=== PATIENT | female | born 1935 | race Caucasian/White ===

== ENCOUNTER → 2018-10-28 | Outpatient (CLI) | payer MEDICARE ==
[2018-10-28 09:34] LABS: Basophils # (A) 0.1 k/uL (0-0.2); Basophils % (A) 1 %; Eosinophils # (A) 0.2 k/uL (0-0.7); Eosinophils % (A) 3 %; HCT 42.2 % (34.0-46.0); HGB 14.2 gm/dL (11.4-16.0); Lymphocytes # (A) 1.8 k/uL (1.0-4.8); Lymphocytes % (A) 28 %; MCH 30.9 pg (25.0-35.0); MCHC 33.6 g/dL (31.0-37.0); MCV 92.2 fL (80.0-100.0); Mean Platelet Volume 7.2; Monocytes # (A) 0.4 k/uL (0-1.0); Monocytes % (A) 7 %; Neutrophils # (A) 3.6 k/uL (1.3-7.7); Neutrophils % (A) 58 %; Platelet Count 349 k/uL (150-450); RBC 4.58 m/uL (3.80-5.40); RDW 13.7 % (11.5-15.5); WBC 6.3 k/uL (3.8-10.6)
[2018-10-28 16:34] LABS: Albumin 4.3 g/dL (3.80-4.90); Albumin/Globulin Ratio 2.26 (1.60-3.17); Calcium 9.5 mg/dL (8.7-10.3); Globulin 1.9 g/dL (1.6-3.3); LDL Cholesterol,Calculated 125.6 mg/dL (0.0-131.0); Magnesium 2.3 mg/dL (1.5-2.4); Total Bilirubin 0.3 mg/dL (0.3-1.2); Total Protein 6.2 g/dL (6.2-8.2); Uric Acid 4.9 mg/dL (2.9-7.7); VLDL Calculation 55.4 mg/dL (5.00-40.00)
[2018-10-28 16:42] LABS: T4, Free (Free Thyroxine) 1.2 ng/dL (0.80-1.80)
== END ==
LOC: LABWHC1 08:45
PROVIDERS: ATTEND Family Medicine
DX: N18.3 Chronic kidney disease, stage 3 (moderate) (principal); E03.9 Hypothyroidism, unspecified; E78.5 Hyperlipidemia, unspecified; E55.9 Vitamin D deficiency, unspecified
CPT/HCPCS: 36415; 80053; 80061; 82043; 82306; 82570; 83735; 84100; 84439; 84443; 84550; 85025

== ENCOUNTER 2018-12-11 14:37 | Emergency (ER) | payer MEDICARE ==
[2018-12-11 14:44] VITALS: TEMP 98.1
[2018-12-11] MEDS ORDERED: DIAZEPAM 5 MG TAB PO STA (15:14)
[2018-12-11] MEDS ORDERED: Acetaminophen-Codeine 300-30mg TAB PO STA (15:14)
[2018-12-11] MEDS ORDERED: MAG HYDROX/AL HYDROX/SIMETH 30 ML, HYOSCYAMINE ELIXIR 10 ML, CIMETIDINE HCL 300 MG, LID... PO STA ×4 (15:15)
--- NOTE | 2018-12-11 15:18 | ED ---
General Adult HPI - General Chief complaint: Weakness Stated complaint: Weakness, confused sent by Time Seen by Provider: 12/11/18 14:46 Source: patient Mode of arrival: wheelchair Limitations: no limitations - History of Present Illness Initial comments: Dictation was produced using [employer] dictation software. please excuse any gram matical, word or spelling errors. 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 History of Present Illness: Is 82-year-old female she has history of vertebral artery stenosis versus occlusion. She states that over the last 2-3 days she's been having worsening pain, GI upset. Patient takes aspirin for her vascular disease. Patient has been feeling GI upset for the last 2-3 days. Patient recently switched primary care physicians. She sees Dr. Venegas now. For the last couple months she has been without her Tylenol No. 3's and Valium pills. Patient states since being off these medications she's been experiencing worsening neck pain symptoms. Patient feels tightness to the occipital area and her pain is exacerbated with movement. She feels as though her muscles are spasming. Patient reports that she was recently diagnosed with constipation and had multiple enemas with relief of constipation. Patient has history of cholecystectomy. She was diagnosed with bile duct stones after cholecystectomy. She reported ERCP at that time. Eyes any worsening symptoms with by mouth intake. Denies any neuro complaints. The ROS documented in this emergency department record has been reviewed and confirmed by me. Those systems with pertinent positive or negative responses have been documented in the HPI. All other systems are other negative and/or noncontributory. PHYSICAL EXAM: General Impression: Alert and oriented x3, not in acute distress HEENT: Normocephalic atraumatic, extra-ocular movements intact, pupils equal and reactive to light bilaterally, mucous membranes moist, spasm felt to the paracervical soft tissues Cardiovascular: Heart regular rate and rhythm, S1&S2 audible, no murmurs, rubs or gallops Chest: Lungs clear to auscultation bilaterally, no rhonchi, no wheeze, no rales Abdomen: Bowel sounds present, abdomen soft, non-tender, non-distended, no organomegaly Musculoskeletal: Pulses present and equal in all extremities, no peripheral edema Motor: no focal deficits noted Neurological: CN II-XII grossly intact, no focal motor or sensory deficits noted, non-gait ataxia Skin: Intact with no visualized rashes Psych: Normal affect and mood ED course: 82 yo female presents with epigastric abdominal pain and neck stiffness. As upon arrival are within acceptable limits. Return evaluation obtained. CBC, metabolic panel is obtained. Urinalysis negative. KUB x-ray was obtained and is found to be unremarkable. Patient treated with GI cocktail, Tylenol 3 and Valium. Patient observed in emergency department for several hours. She is reevaluated improvement of symptoms. Patient given a small amount of Tylenol 3 and Valium to be discharged with. She is told to follow-up with her PCP for refill. She is clinical presentation consistent with GI upset likely gastritis and acute cervical spasm. Return for hours discussed. Patient clear for discharge. EKG interpretation: Ventricular rate 76, normal sinus rhythm,. Interval 136, QS 84, QTC 4:30. No IA prolongation, no QTC prolongation, no ST or T-wave changes noted. No old EKG for comparison Overall, this EKG is unremarkable - Related Data Home Medications Medication Instructions Recorded Confirmed Amitriptyline HCl [Elavil] 25 mg PO HS 12/11/18 12/11/18 Aspirin [[place] Aspirin EC] 81 mg PO DAILY 12/11/18 12/11/18 Calcium Carbonate/Vitamin D3 1 tab PO DAILY 12/11/18 12/11/18 [Calcium 500-Vit D3 600 Tablet] Cholecalciferol (Vitamin D3) 2,000 unit PO DAILY 12/11/18 12/11/18 [Vitamin D3] Donepezil HCl [Aricept] 5 mg PO DAILY 12/11/18 12/11/18 Magnesium Citrate 125 mg PO DAILY 12/11/18 12/11/18 Magnesium Oxide 400 mg PO DAILY 12/11/18 12/11/18 Metoprolol Succinate (ER) [Toprol 100 mg PO DAILY 12/11/18 12/11/18 XL] Multivitamins, Thera [Multivitamin 1 tab PO DAILY 12/11/18 12/11/18 (formulary)] Niacin (Inositol Niacinate) [No 400 mg PO DAILY 12/11/18 12/11/18 Flush Niacin 400 mg Cap] Polyethylene Glycol 3350 [Miralax] 17 gm PO DAILY 12/11/18 12/11/18 Prochlorperazine [Compazine] 5 mg PO Q8HR PRN 12/11/18 12/11/18 Triamterene-Hctz 37.5-25Mg 1 cap PO DAILY 12/11/18 12/11/18 [Dyazide 37.5-25 Capsule] Vanquish 1 tab PO BID 12/11/18 12/11/18 Previous Rx's Medication Instructions Recorded Acetaminophen-Codeine 300-30mg 1 tab PO Q6H PRN 3 Days #12 tablet 12/11/18 [Tylenol w/codeine #3] Diazepam [Valium] 2 mg PO TID PRN 3 Days #9 tab 12/11/18 Pantoprazole [Protonix] 40 mg PO DAILY #24 tablet. 12/11/18 Allergies Allergy/AdvReac Type Severity Reaction Status Date / Time No Known Allergies Allergy Unverified 12/11/18 15:11 Review of Systems ROS Statement: Those systems with pertinent positive or pertinent negative responses have been documented in the HPI. ROS Other: All systems not noted in ROS Statement are negative. Past Medical History Past Medical History: Hypertension Additional Past Medical History / Comment(s): neuropathy History of Any Multi-Drug Resistant Organisms: None Reported Past Psychological History: No Psychological Hx Reported Smoking Status: Never smoker Past Alcohol Use History: None Reported Past Drug Use History: None Reported General Exam Limitations: no limitations Course Vital Signs 12/11/18 12/11/18 12/11/18 14:39 16:00 16:40 Temperature 98.1 F Pulse Rate 79 71 76 Respiratory 18 15 15 Rate Blood Pressure 158/76 159/71 152/76 O2 Sat by Pulse 99 98 98 Oximetry Medical Decision Making - Lab Data Result diagrams: 12/11/18 15:34 12/11/18 15:34 Lab Results 12/11/18 12/11/18 12/11/18 Range/Units 15:34 15:34 15:34 WBC 8.0 (3.8-10.6) k/uL RBC 4.60 (3.80-5.40) m/uL Hgb 14.2 (11.4-16.0) gm/dL Hct 42.1 (34.0-46.0) % MCV 91.5 (80.0-100.0) fL MCH 31.0 (25.0-35.0) pg MCHC 33.8 (31.0-37.0) g/dL RDW 14.2 (11.5-15.5) % Plt Count 308 (150-450) k/uL Neutrophils % 65 % Lymphocytes % 23 % Monocytes % 7 % Eosinophils % 1 % Basophils % 1 % Neutrophils # 5.2 (1.3-7.7) k/uL Lymphocytes # 1.9 (1.0-4.8) k/uL Monocytes # 0.6 (0-1.0) k/uL Eosinophils # 0.1 (0-0.7) k/uL Basophils # 0.1 (0-0.2) k/uL Sodium 140 (137-145) mmol/L Potassium 4.0 (3.5-5.1) mmol/L Chloride 100 (98-107) mmol/L Carbon Dioxide 30 (22-30) mmol/L Anion Gap 10 mmol/L BUN 16 (7-17) mg/dL Creatinine 0.98 (0.52-1.04) mg/dL Est GFR (CKD-EPI)AfAm 63 (>60 ml/min/1.73 sqM) Est GFR (CKD-EPI)NonAf 55 (>60 ml/min/1.73 sqM) Glucose 96 (74-99) mg/dL Calcium 10.1 (8.4-10.2) mg/dL Total Bilirubin 0.7 (0.2-1.3) mg/dL Conjugated Bilirubin 0.0 (0.0-0.3) mg/dL Unconjugated Bilirubin 0.5 (0.0-1.1) mg/dL Delta Bilirubin 0.2 (0.0-0.2) mg/dL AST 37 H (14-36) U/L ALT 19 (9-52) U/L Alkaline Phosphatase 92 (38-126) U/L Total Protein 7.8 (6.3-8.2) g/dL Albumin 4.8 (3.5-5.0) g/dL Lipase 52 (23-300) U/L Urine Color Colorless Urine Appearance Clear (Clear) Urine pH 7.5 (5.0-8.0) Ur Specific [place] 1.005 (1.001-1.035) Urine Protein Negative (Negative) Urine Glucose (UA) Negative (Negative) Urine Ketones Negative (Negative) Urine Blood Negative (Negative) Urine Nitrite Negative (Negative) Urine Bilirubin Negative (Negative) Urine Urobilinogen <2.0 (<2.0) mg/dL Ur Leukocyte Esterase Negative (Negative) Disposition Clinical Impression: Cervical strain, Epigastric pain Disposition: HOME SELF-CARE Condition: Good Instructions (If sedation given, give patient instructions): Abdominal Pain (ED), Cervical Strain (ED) Prescriptions: Pantoprazole [Protonix] 40 mg PO DAILY #24 tablet.dr Acetaminophen-Codeine 300-30mg [Tylenol w/codeine #3] 1 tab PO Q6H PRN 3 Days #12 tablet PRN Reason: Pain Diazepam [Valium] 2 mg PO TID PRN 3 Days #9 tab PRN Reason: neck spasm Is patient prescribed a controlled substance at d/c from ED?: Yes If prescribed controlled substance>3 days was MAPS reviewed?: Prescribed <3 Days Referrals: Rosetta Venegas MD [Primary Care Provider] - 1-2 days Time of Disposition: 17:11
[2018-12-11 15:45] LABS: Basophils # (A) 0.1 k/uL (0-0.2); Basophils % (A) 1 %; Eosinophils # (A) 0.1 k/uL (0-0.7); Eosinophils % (A) 1 %; HCT 42.1 % (34.0-46.0); HGB 14.2 gm/dL (11.4-16.0); Lymphocytes # (A) 1.9 k/uL (1.0-4.8); Lymphocytes % (A) 23 %; MCHC 33.8 g/dL (31.0-37.0); MCV 91.5 fL (80.0-100.0); Mean Platelet Volume 7.4; Monocytes # (A) 0.6 k/uL (0-1.0); Monocytes % (A) 7 %; Neutrophils # (A) 5.2 k/uL (1.3-7.7); Neutrophils % (A) 65 %; Platelet Count 308 k/uL (150-450); RDW 14.2 % (11.5-15.5)
[2018-12-11 15:47] LABS: Appearance,Urine Clear (Clear); Bilirubin,Urine Negative (Negative); Blood,Urine Negative (Negative); Color,Urine Colorless; Glucose,Urine (UA) Negative (Negative); Ketones,Urine Negative (Negative); Leukocyte Esterase,Urine Negative (Negative); Nitrite,Urine Negative (Negative); PH, Urine 7.5 (5.0-8.0); Protein,Urine Negative (Negative); Specific Gravity,Urine 1.005 (1.001-1.035); Urobilinogen,Urine <2.0 mg/dL (<2.0)
--- NOTE | 2018-12-11 15:47 | XR ---
EXAMINATION TYPE: XR KUB DATE OF EXAM: 12/11/2018 COMPARISON: NONE HISTORY: Mid abdominal pain and constipation TECHNIQUE: Single upright view of the abdomen was obtained FINDINGS: Lung bases are well aerated. Cholecystectomy clips are seen. Scattered air is seen within n ondilated large and small bowel. No pneumoperitoneum is seen. There is a very mild levoscoliosis of t he upper lumbar spine. No acute osseous pathology is seen. No suspicious calcification in the abdomen or pelvis. IMPRESSION: Nonobstructive bowel gas pattern.
[2018-12-11 15:53] LABS: Albumin 4.8 g/dL (3.5-5.0); Bilirubin, Delta 0.2 mg/dL (0.0-0.2); Bilirubin,Unconjugated 0.5 mg/dL (0.0-1.1); Calcium 10.1 mg/dL (8.4-10.2); Total Bilirubin 0.7 mg/dL (0.2-1.3); Total Protein 7.8 g/dL (6.3-8.2)
[2018-12-11 16:47] VITALS: BP 152/76; PULSE 76; RESP 15
== END 2018-12-11 17:24 | disposition home or self-care (01) ==
LOC: EC 14:37
DX: S16.1XXA Strain of muscle, fascia and tendon at neck level, initial encounter (principal); R10.13 Epigastric pain; I10 Essential (primary) hypertension; K59.00 Constipation, unspecified; Z79.82 Long term (current) use of aspirin; Z79.899 Other long term (current) drug therapy; Z90.49 Acquired absence of other specified parts of digestive tract
CPT/HCPCS: 36415; 74018; 80053; 81003; 82248; 83690; 85025; 87086; 93005; 99285

== ENCOUNTER → 2019-06-15 | Outpatient (CLI) | payer MEDICARE ==
[2019-06-15 11:19] LABS: Basophils # (A) 0.1 k/uL (0-0.2); Basophils % (A) 1 %; Eosinophils # (A) 0.2 k/uL (0-0.7); Eosinophils % (A) 3 %; HGB 13.1 gm/dL (11.4-16.0); Lymphocytes # (A) 1.5 k/uL (1.0-4.8); Lymphocytes % (A) 24 %; MCH 32.3 pg (25.0-35.0); MCHC 34.4 g/dL (31.0-37.0); MCV 93.8 fL (80.0-100.0); Mean Platelet Volume 7.8; Monocytes # (A) 0.5 k/uL (0-1.0); Monocytes % (A) 7 %; Neutrophils # (A) 3.8 k/uL (1.3-7.7); Neutrophils % (A) 61 %; Platelet Count 258 k/uL (150-450); RBC 4.05 m/uL (3.80-5.40); RDW 12.3 % (11.5-15.5); WBC 6.1 k/uL (3.8-10.6)
[2019-06-15 17:53] LABS: African American GFR (CKD) 49.1 (60.0-200.0); Albumin 4.2 g/dL (3.80-4.90); Albumin/Globulin Ratio 2.21 (1.60-3.17); Anion Gap 6.1 mmol/L (4.00-12.00); Calcium 9.6 mg/dL (8.7-10.3); Carbon Dioxide 31.9 mmol/L (21.6-31.8); Chol/HDL Ratio 3.19; Globulin 1.9 g/dL (1.6-3.3); LDL Cholesterol,Calculated 112.4 mg/dL (0.0-131.0); Non-African American GFR(CKD) 42.3 (60.0-200.0); Potassium 4.1 mmol/L (3.5-5.5); Total Bilirubin 0.4 mg/dL (0.2-1.2); Total Protein 6.1 g/dL (6.2-8.2); VLDL Calculation 23.6 mg/dL (5.00-40.00)
== END | disposition home or self-care (01) ==
LOC: LABWHC1 09:24
PROVIDERS: ATTEND Family Medicine
DX: I12.9 Hypertensive chronic kidney disease with stage 1 through stage 4 chronic kidney disease, or unspecified chronic kidney disease (principal); N18.3 Chronic kidney disease, stage 3 (moderate); E78.5 Hyperlipidemia, unspecified
CPT/HCPCS: 36415; 80053; 80061; 85025

== ENCOUNTER → 2019-09-09 | Outpatient (CLI) | payer MEDICARE ==
--- NOTE | 2019-09-09 12:07 | XR ---
EXAMINATION TYPE: XR thoracic spine 2V DATE OF EXAM: 09/09/2019 CLINICAL HISTORY: Mid back pain TECHNIQUE: Frontal, lateral, and swimmer's view of thoracic spine are obtained. COMPARISON: None. FINDINGS: Thoracic spine show satisfactory alignment without evidence of acute fracture or dislocatio n. Minimal degenerative change of the thoracic spine. Vertebral body heights and disc space heights are preserved. Cholecystectomy clips are seen. Visualized ribs are unremarkable. Vascular stent is seen superior to the aortic arch. IMPRESSION: No acute fracture or dislocation is seen in the thoracic spine. Mild multilevel degenera tive change of the thoracic spine.
== END | disposition home or self-care (01) ==
LOC: RADXRMAIN 11:33
PROVIDERS: ATTEND Family Medicine
DX: M47.814 Spondylosis without myelopathy or radiculopathy, thoracic region (principal)
CPT/HCPCS: 72070

== ENCOUNTER → 2021-01-19 | Outpatient (CLI) | payer MEDICARE ==
--- NOTE | 2021-01-19 09:32 | XR ---
EXAMINATION TYPE: XR chest 2V DATE OF EXAM: 01/19/2021 COMPARISON: NONE HISTORY: Cough TECHNIQUE: Frontal and lateral views of the chest are obtained. FINDINGS: There is no focal air space opacity, pleural effusion, or pneumothorax seen. The cardiac silhouette size is within normal limits. The osseous structures are intact. Stent material is noted in the upper mediastinum. IMPRESSION: No acute cardiopulmonary process.
== END | disposition home or self-care (01) ==
LOC: RADXRMAIN 08:14
PROVIDERS: ATTEND Otolaryngology
DX: R05 Cough (principal)
CPT/HCPCS: 71046

== ENCOUNTER 2023-02-05 09:44 | Emergency (ER) | payer MEDICARE ==
[2023-02-05 09:59] VITALS: TEMP 97.9
--- NOTE | 2023-02-05 10:39 | ED ---
General Adult HPI - General Chief complaint: Weakness Time Seen by Provider: 02/05/23 10:11 Source: patient, family, RN notes reviewed Mode of arrival: wheelchair Limitations: no limitations - History of Present Illness Initial comments: 87-year-old female with past medical history of hypertension, hypothyroidism presents to the emergency department with chief complaint of weakness and lightheadedness 2-3 days. Patient reports that she has had a lack of appetite for the past 3-4 days and has not been eating much. She reports that she is hydrating well. She states that she is scheduled for a CT abdomen tomorrow with her increasing weakness and low appetite she figured that she should come to the emergency department to be evaluated today. She reports associated nausea without vomiting. Prior abdominal surgeries include cholecystectomy, hysterectomy. - Related Data Home Medications Medication Instructions Recorded Confirmed Amitriptyline HCl [Elavil] 25 mg PO HS 12/11/18 02/05/23 Donepezil HCl [Aricept] 5 mg PO HS 12/11/18 02/05/23 Metoprolol Succinate (ER) [Toprol 100 mg PO DAILY 12/11/18 02/05/23 XL] Multivitamins, Thera [Multivitamin 1 tab PO DAILY 12/11/18 02/05/23 (formulary)] Triamterene-Hctz 37.5-25Mg 1 cap PO DAILY 12/11/18 02/05/23 [Dyazide 37.5-25 Capsule] Levothyroxine Sodium [Synthroid] 25 mcg PO DAILY 02/05/23 02/05/23 Omeprazole [PriLOSEC] 20 mg PO DAILY 02/05/23 02/05/23 Previous Rx's Medication Instructions Recorded Ondansetron Odt [Zofran Odt] 4 mg PO Q8HR PRN #10 tab 02/05/23 Allergies Allergy/AdvReac Type Severity Reaction Status Date / Time No Known Allergies Allergy Verified 02/05/23 14:37 Review of Systems ROS Statement: Those systems with pertinent positive or pertinent negative responses have been documented in the HPI. ROS Other: All systems not noted in ROS Statement are negative. Past Medical History Past Medical History: Cancer, Hypertension Additional Past Medical History / Comment(s): neuropathy History of Any Multi-Drug Resistant Organisms: None Reported Past Surgical History: Cholecystectomy, Heart Catheterization With Stent, Hysterectomy Past Psychological History: No Psychological Hx Reported Smoking Status: Never smoker Past Alcohol Use History: None Reported Past Drug Use History: None Reported General Exam Limitations: no limitations General appearance: alert, in no apparent distress Head exam: Present: atraumatic, normocephalic, normal inspection Eye exam: Present: normal appearance ENT exam: Present: normal exam, mucous membranes moist Neck exam: Present: normal inspection. Absent: tenderness, meningismus, ly mphadenopathy Respiratory exam: Present: normal lung sounds bilaterally. Absent: respiratory distress, wheezes, rales, rhonchi, stridor Cardiovascular Exam: Present: systolic murmur GI/Abdominal exam: Present: soft, tenderness Extremities exam: Present: normal inspection, full ROM, normal capillary refill. Absent: tenderness, pedal edema, joint swelling, calf tenderness Back exam: Present: normal inspection Neurological exam: Present: alert, oriented X3 Psychiatric exam: Present: normal affect, normal mood Skin exam: Present: warm, dry, intact, normal color. Absent: rash Course Vital Signs 02/05/23 02/05/23 09:55 14:49 Temperature 97.9 F Pulse Rate 95 81 Respiratory 16 17 Rate Blood Pressure 188/78 160/81 O2 Sat by Pulse 99 97 Oximetry Medical Decision Making - Medical Decision Making Was pt. sent in by a medical professional or institution ([facility], TEACHER AIDE, urgent care, hospital, or intermediate...) When possible be specific @ -No Did you speak to anyone other than the patient for history (EMS, parent, family, police, friend...)? What history was obtained from this source @ -Patient's and son provided some history of this patient Did you review nursing and triage notes (agree or disagree)? Why? @ -I reviewed and agree with nursing and triage notes Were old charts reviewed (outside hosp., previous admission, EMS record, old EKG, old radiological studies, urgent care reports/EKG's, intermediate records)? Report findings @ -No old charts were reviewed Differential Diagnosis (chest pain, altered mental status, abdominal pain women, abdominal pain men, vaginal bleeding, weakness, fever, dyspnea, syncope, headache, dizziness, GI bleed, back pain, seizure, CVA, palpatations, mental health, musculoskeletal)? @ -Differential Weakness: Hypoglycemia, shock, sepsis, hyponatremia, anemia, infection, CA, ETOH, adverse medicine reaction, overdose, stroke, this is not meant to be an all-inclusive list. EKG interpreted by me (3pts min.). @ -EKG at 1105 shows sinus rhythm rate 70, WA 142, QRS 93 X-rays interpreted by me (1pt min.). @ -CXR shows COPD changes with no evidence for acute process CT interpreted by me (1pt min.). @ -CT abdomen and pelvis no evidence for acute process, trace left pleural effusion U/S interpreted by me (1pt. min.). @ -None done What testing was considered but not performed or refused? (CT, X-rays, U/S, labs)? Why? @ -None What meds were considered but not given or refused? Why? @ -None Did you discuss the management of the patient with other professionals (professionals i.e. , PA, TEACHER AIDE, lab, RT, psych nurse, aids social worker, group sales manager, teacher, retail loss prevention officer, telephonic case manager)? Give summary @ -Case discussed with [facility] who did not believe the patient met criteria for admission or observation Was smoking cessation discussed for >3mins.? @ -No Was critical care preformed (if so, how long)? @ -No Were there social determinants of health that impacted care today? How? (Homelessness, low income, unemployed, alcoholism, drug addiction, transportation, low edu. Level, literacy, decrease access to med. care, intermediate, rehab)? @ -No Was there de-escalation of care discussed even if they declined (Discuss DNR or withdrawal of care, Hospice)? DNR status @ -No What co-morbidities impacted this encounter? (DM, HTN, Smoking, COPD, CAD, Cancer, CVA, ARF, Chemo, Hep., AIDS, mental health diagnosis, sleep apnea, morbid obesity)? @ -None Was patient admitted / discharged? Hospital course, mention meds given and route, prescriptions, significant lab abnormalities, going to OR and other pertinent info. @ -Discharged. Patient presented to the emergency department with chief complaint of generalized weakness worsening over the past 2-3 days. Patient is alert and oriented 4 with no focal neurological deficits. Patient reports decreased appetite with associated nausea.CBC within normal limits, CMP showed mild hyponatremia 132, GFR 61, lactic acid 0.8, negative troponin, BNP 3480; UA showed negative nitrite, negative leukocyte esterase; CT abdomen and pelvis showed trace left-sided pleural effusion, no acute abdominal process. Inpatient admission was considered, this is discussed with his management and [facility] who believes the patient does not meet criteria for inpatient admission. This was discussed with the patient and family and option for admission was discussed with family. Family feels comfortable taking the patient home with strict return precautions and close follow-up with patient's primary care provider. appointment was made for patient's primary care provider on . Strict return precautions discussed. Patient stable at time of discharge. Case discussed with my attending, Dr. Aguilera Undiagnosed new problem with uncertain prognosis? @ -No Drug Therapy requiring intensive monitoring for toxicity (Heparin, Nitro, Insulin, Cardizem)? @ -No Were any procedures done? @ -No Diagnosis/symptom? @ -Generalized weakness Acute, or Chronic, or Acute on Chronic? @ -Acute Uncomplicated (without systemic symptoms) or Complicated (systemic symptoms)? @ -Uncomplicated Side effects of treatment? @ -No Exacerbation, Progression, or Severe Exacerbation? @ -No Poses a threat to life or bodily function? How? (Chest pain, [place], CA, pneumonia, PE, COPD, DKA, ARF, appy, cholecystitis, CVA, Diverticulitis, Homicidal, Suicidal, threat to staff... and all critical care pts) @ -No - Lab Data Result diagrams: 02/05/23 10:40 02/05/23 10:40 Lab Results 02/05/23 02/05/23 02/05/23 Range/Units 10:40 10:40 10:40 WBC 6.2 (3.8-10.6) k/uL RBC 4.27 (3.80-5.40) m/uL Hgb 14.0 (11.4-16.0) gm/dL Hct 39.7 (34.0-46.0) % MCV 92.9 (80.0-100.0) fL MCH 32.8 (25.0-35.0) pg MCHC 35.3 (31.0-37.0) g/dL RDW 12.9 (11.5-15.5) % Plt Count 243 (150-450) k/uL MPV 8.2 Neutrophils % 74 % Lymphocytes % 15 % Monocytes % 7 % Eosinophils % 1 % Basophils % 1 % Neutrophils # 4.6 (1.3-7.7) k/uL Lymphocytes # 0.9 L (1.0-4.8) k/uL Monocytes # 0.4 (0-1.0) k/uL Eosinophils # 0.1 (0-0.7) k/uL Basophils # 0.0 (0-0.2) k/uL PT 9.9 (9.0-12.0) sec INR 0.9 (<1.2) APTT 26.5 (22.0-30.0) sec Sodium (137-145) mmol/L Potassium (3.5-5.1) mmol/L Chloride (98-107) mmol/L Carbon Dioxide (22-30) mmol/L Anion Gap mmol/L BUN (7-17) mg/dL Creatinine (0.52-1.04) mg/dL Est GFR (CKD-EPI)AfAm (>60 ml/min/1.73 sqM) Est GFR (CKD-EPI)NonAf (>60 ml/min/1.73 sqM) Glucose (74-99) mg/dL Plasma Lactic Acid [place] (0.7-2.0) mmol/L Calcium (8.4-10.2) mg/dL Magnesium (1.6-2.3) mg/dL Total Bilirubin (0.2-1.3) mg/dL AST (14-36) U/L ALT (4-34) U/L Alkaline Phosphatase (38-126) U/L Troponin I (0.000-0.034) ng/mL NT-Pro-B Natriuret Pep pg/mL Total Protein (6.3-8.2) g/dL Albumin (3.5-5.0) g/dL Urine Color Colorless Urine Appearance Clear (Clear) Urine pH 6.5 (5.0-8.0) Ur Specific [place] 1.007 (1.001-1.035) Urine Protein Negative (Negative) Urine Glucose (UA) Negative (Negative) Urine Ketones Negative (Negative) Urine Blood Negative (Negative) Urine Nitrite Negative (Negative) Urine Bilirubin Negative (Negative) Urine Urobilinogen <2.0 (<2.0) mg/dL Ur Leukocyte Esterase Negative (Negative) 02/05/23 02/05/23 02/05/23 Range/Units 10:40 10:40 10:40 WBC (3.8-10.6) k/uL RBC (3.80-5.40) m/uL Hgb (11.4-16.0) gm/dL Hct (34.0-46.0) % MCV (80.0-100.0) fL MCH (25.0-35.0) pg MCHC (31.0-37.0) g/dL RDW (11.5-15.5) % Plt Count (150-450) k/uL MPV Neutrophils % % Lymphocytes % % Monocytes % % Eosinophils % % Basophils % % Neutrophils # (1.3-7.7) k/uL Lymphocytes # (1.0-4.8) k/uL Monocytes # (0-1.0) k/uL Eosinophils # (0-0.7) k/uL Basophils # (0-0.2) k/uL PT (9.0-12.0) sec INR (<1.2) APTT (22.0-30.0) sec Sodium 132 L (137-145) mmol/L Potassium 4.0 (3.5-5.1) mmol/L Chloride 95 L (98-107) mmol/L Carbon Dioxide 31 H (22-30) mmol/L Anion Gap 6 mmol/L BUN 18 H (7-17) mg/dL Creatinine 0.88 (0.52-1.04) mg/dL Est GFR (CKD-EPI)AfAm 70 (>60 ml/min/1.73 sqM) Est GFR (CKD-EPI)NonAf 61 (>60 ml/min/1.73 sqM) Glucose 99 (74-99) mg/dL Plasma Lactic Acid [place] 0.8 (0.7-2.0) mmol/L Calcium 9.7 (8.4-10.2) mg/dL Magnesium 1.6 (1.6-2.3) mg/dL Total Bilirubin 0.7 (0.2-1.3) mg/dL AST 35 (14-36) U/L ALT 18 (4-34) U/L Alkaline Phosphatase 77 (38-126) U/L Troponin I <0.012 (0.000-0.034) ng/mL NT-Pro-B Natriuret Pep 3480 pg/mL Total Protein 7.7 (6.3-8.2) g/dL Albumin 4.5 (3.5-5.0) g/dL Urine Color Urine Appearance (Clear) Urine pH (5.0-8.0) Ur Specific [place] (1.001-1.035) Urine Protein (Negative) Urine Glucose (UA) (Negative) Urine Ketones (Negative) Urine Blood (Negative) Urine Nitrite (Negative) Urine Bilirubin (Negative) Urine Urobilinogen (<2.0) mg/dL Ur Leukocyte Esterase (Negative) Disposition Clinical Impression: Generalized weakness Disposition: HOME SELF-CARE Condition: Stable Additional Instructions: Please return to the emergency department for new or worsening symptoms. Prescriptions: Ondansetron Odt [Zofran Odt] 4 mg PO Q8HR PRN #10 tab PRN Reason: Nausea Is patient prescribed a controlled substance at d/c from ED?: No Referrals: Sandra Meza MD [Primary Care Provider] - 02/07/23 1:30 pm Time of Disposition: 14:33
--- NOTE | 2023-02-05 11:00 | XR ---
EXAMINATION TYPE: XR chest 2V DATE OF EXAM: 02/05/2023 10:54 AM COMPARISON: Chest radiographs from 01/19/2021 TECHNIQUE: XR chest 2V . CLINICAL INDICATION:Female, 87 years old with history of Weakness; FINDINGS: Lungs/Pleura: There is no evidence of pleural effusion, focal consolidation, or pneumothorax. Hyperi nflation. Pulmonary vascularity: Unremarkable. Heart/mediastinum: Cardiomediastinal silhouette is enlarged and stable. Musculoskeletal: No acute osseous pathology. Other findings: Stent material is again noted within the upper mediastinum on the left. IMPRESSION: COPD changes with cardiomegaly without evidence for acute process.
[2023-02-05 11:33] LABS: Basophils % (A) 1 %; Eosinophils # (A) 0.1 k/uL (0-0.7); Eosinophils % (A) 1 %; HCT 39.7 % (34.0-46.0); Lymphocytes # (A) 0.9 k/uL (1.0-4.8); Lymphocytes % (A) 15 %; MCH 32.8 pg (25.0-35.0); MCHC 35.3 g/dL (31.0-37.0); MCV 92.9 fL (80.0-100.0); Mean Platelet Volume 8.2; Monocytes # (A) 0.4 k/uL (0-1.0); Monocytes % (A) 7 %; Neutrophils # (A) 4.6 k/uL (1.3-7.7); Neutrophils % (A) 74 %; Platelet Count 243 k/uL (150-450); RBC 4.27 m/uL (3.80-5.40); RDW 12.9 % (11.5-15.5); WBC 6.2 k/uL (3.8-10.6)
[2023-02-05 11:46] LABS: INR 0.9 (<1.2); Partial Thromboplastin Time 26.5 sec (22.0-30.0); Prothrombin Time 9.9 sec (9.0-12.0)
[2023-02-05 12:01] LABS: ALT 18 U/L (4-34); AST 35 U/L (14-36); African American GFR (CKD) 70 (>60 ml/min/1.73 sqM); Albumin 4.5 g/dL (3.5-5.0); Alkaline Phosphatase 77 U/L (38-126); Anion Gap 6 mmol/L; Blood Urea Nitrogen 18 mg/dL (7-17); Calcium 9.7 mg/dL (8.4-10.2); Carbon Dioxide 31 mmol/L (22-30); Chloride 95 mmol/L (98-107); Glucose 99 mg/dL (74-99); Magnesium 1.6 mg/dL (1.6-2.3); Non-African American GFR(CKD) 61 (>60 ml/min/1.73 sqM); Sodium 132 mmol/L (137-145); Total Bilirubin 0.7 mg/dL (0.2-1.3); Total Protein 7.7 g/dL (6.3-8.2)
[2023-02-05 12:08] LABS: NT-Pro-B-Type Natriuretic Pept 3480 pg/mL
[2023-02-05 12:42] LABS: Appearance,Urine Clear (Clear); Bilirubin,Urine Negative (Negative); Blood,Urine Negative (Negative); Color,Urine Colorless; Glucose,Urine (UA) Negative (Negative); Ketones,Urine Negative (Negative); Leukocyte Esterase,Urine Negative (Negative); Nitrite,Urine Negative (Negative); PH, Urine 6.5 (5.0-8.0); Protein,Urine Negative (Negative); Specific Gravity,Urine 1.007 (1.001-1.035); Urobilinogen,Urine <2.0 mg/dL (<2.0)
--- NOTE | 2023-02-05 12:49 | CT ---
EXAMINATION TYPE: CT abdomen pelvis w con CT DLP: 387.6 mGycm, Automated exposure control for dose reduction was used. DATE OF EXAM: 02/05/2023 12:39 PM COMPARISON: None CLINICAL INDICATION:Female, 87 years old with history of abd pain; abd pain TECHNIQUE: Standard CT of the abdomen and pelvis following the administration of 100 cc of Isovue 3 00 IV contrast material. Coronal and sagittal reformats were performed. FINDINGS: Limited examination due to paucity of intraabdominal fat. LOWER CHEST: Linear scarring and/or atelectasis within the left lower lobe. Trace left pleural effusi on. Cardiomegaly. Couple of grouped pulmonary nodules within the right lower lobe measuring up to 6 m m (series 21, image 5). ABDOMEN LIVER: Small region of low attenuation adjacent to falciform ligament likely representing focal fatty infiltration. GALLBLADDER AND BILE DUCTS: Gallbladder is surgically absent with mild intrahepatic and extra hepatic biliary dilatation likely physiologic and a postcholecystectomy change. No evidence of choledocholit hiasis. PANCREAS: Unremarkable. SPLEEN: Unremarkable. ADRENAL GLANDS: Unremarkable. KIDNEYS AND URETERS: No evidence of hydronephrosis of the kidneys enhance symmetrically. Contrast is demonstrated within both collecting system which limits evaluation renal calculi. PELVIS BLADDER: Unremarkable REPRODUCTIVE: The uterus is surgically absent. ABDOMEN & PELVIS STOMACH AND BOWEL: Stomach and duodenum are unremarkable . No focal bowel wall thickening or surround ing inflammatory changes. The appendix is not visualized however there is no significant inflammatory changes within the right lower quadrant. No evidence of bowel obstruction. PERITONEUM: No evidence of pneumoperitoneum. Trace amount of free fluid in the pelvis. VASCULATURE: Moderate atherosclerotic calcifications are present throughout the abdominal aorta and i ts branches. No evidence of aortic aneurysm. Few pelvic phleboliths. MUSCULOSKELETAL: No acute osseous abnormalities. Mild disc degeneration changes are present lower lum bar spine. This is most pronounced at L4-L5. Grade 1 anterolisthesis of L3 on L4 without evidence of pars defects. LYMPH NODES: No gross evidence for lymphadenopathy. SOFT TISSUE/ABDOMINAL WALL: Small fat filled left inguinal hernia. IMPRESSION: 1. No acute abdominal/pelvic process. 2. Trace left pleural effusion. 3. Couple of grouped pulmonary nodules within the right lower lobe measuring up to 6 mm which may rep resent infectious/inflammatory process. Follow-up CT chest in 3-6 months is recommended.
[2023-02-05] MEDS ORDERED: ACETAMINOPHEN TAB 325 MG TAB PO STA (13:40)
[2023-02-05] MEDS ORDERED: ONDANSETRON 4 MG/2 ML VIAL IVP STA (13:40)
[2023-02-05 14:54] VITALS: BP 160/81; PULSE 81; RESP 17
== END 2023-02-05 14:56 | disposition home or self-care (01) ==
LOC: EC 09:44
DX: E87.1 Hypo-osmolality and hyponatremia (principal); I10 Essential (primary) hypertension; E03.9 Hypothyroidism, unspecified; Z79.899 Other long term (current) drug therapy; Z79.890 Hormone replacement therapy; Z90.49 Acquired absence of other specified parts of digestive tract
CPT/HCPCS: 36415; 93005; 83880; 80053; 83605; 83735; 84484; 85025; 85610; 85730; 81003; 71046; 74177; 99285; 96374; J2405; Q9967

== ENCOUNTER → 2023-02-25 | Outpatient (CLI) | payer MEDICARE ==
[2023-02-25 10:33] LABS: African American GFR (CKD) 38 (>60 ml/min/1.73 sqM); Blood Urea Nitrogen 25 mg/dL (7-17); Non-African American GFR(CKD) 33 (>60 ml/min/1.73 sqM)
--- NOTE | 2023-02-25 13:39 | CT ---
EXAMINATION TYPE: CT chest wo con DATE OF EXAM: 02/25/2023 COMPARISON: CT abdomen and pelvis dated 02/05/2023 HISTORY: Lung nodule, abn CT abd pelvis CT DLP: 269 mGycm. Automated Exposure Control for Dose Reduction was Utilized. TECHNIQUE: CT scan of the thorax is performed without IV contrast. FINDINGS: LUNGS: The lungs are grossly clear, there is no concerning consolidative pneumonia identified. Ther e is no pleural effusion or pneumothorax seen. The tracheobronchial tree is patent. There are multip le right lower lobe pulmonary nodules, largest measuring 10 mm. Subsegmental linear changes are seen. There is mild emphysematous changes. Additional punctate 1 to 2 mm micronodules are seen scattered throughout the right lower lobe. Biapical pleural thickening. There is a area of mucous plugging in the right lower lobe mucous\soft tissue filled bronchial. Mild central bronchiectasis. MEDIASTINUM: Lack of IV contrast is noted to limit evaluation for mediastinal and especially hilar ad enopathy. There are no definitive greater than 1 cm hilar or mediastinal lymph nodes. The heart is mo derately enlarged. There is calcification the tracheobronchial tree. A sending aorta measures 3.2 cm. There is mild atherosclerotic changes. Calcification aortic valve noted. There is coronary artery ca lcification. OTHER: Surgical clips in the gallbladder fossa. Diffuse osteopenia with multilevel hypertrophic and d egenerative changes of the spine. Bilateral adrenal gland thickening. Small hiatal hernia.. IMPRESSION: 1. Multiple right lower lobe pulmonary nodules the largest measuring 10 mm. Recommend PET scan. 2. Cardiomegaly with coronary artery calcification. 3. COPD.
== END | disposition home or self-care (01) ==
LOC: RADCTMAIN 09:49
PROVIDERS: ATTEND Family Medicine
DX: Z13.9 Encounter for screening, unspecified (principal); R91.8 Other nonspecific abnormal finding of lung field; I25.10 Atherosclerotic heart disease of native coronary artery without angina pectoris; I51.7 Cardiomegaly; J44.9 Chronic obstructive pulmonary disease, unspecified
CPT/HCPCS: 71250; 82565; 84520

== ENCOUNTER → 2023-04-09 | Outpatient (CLI) | payer MEDICARE ==
[2023-04-09 16:29] LABS: African American GFR (CKD) 44 (>60 ml/min/1.73 sqM); Blood Urea Nitrogen 31 mg/dL (7-17); Non-African American GFR(CKD) 38 (>60 ml/min/1.73 sqM)
--- NOTE | 2023-04-11 22:43 | CT ---
EXAMINATION TYPE: CT chest wo con DATE OF EXAM: 04/09/2023 COMPARISON: 02/25/2023 HISTORY: 87-year-old female J98.4, Left lower lung nodule. TECHNIQUE: Contiguous axial scanning of the chest without contrast. Coronal/sagittal reconstructions performed. CT DLP: 161.9mGycm. Automatic exposure control utilized for a dose reduction. FINDINGS: Heart is borderline enlarged without pericardial effusion. Mild scattered coronary calcifications are present. Aorta normal caliber with commensurate vessel branching anatomy. There is a proximal subclavian arter y stents noted. No thoracic lymphadenopathy by CT size criteria. Redemonstrated right basilar nodularity. Nodularity overall appears to be decreasing in size. For exa mple, previously measuring 9 mm and 8 mm versus 7 mm and 6 mm currently. A couple areas of endobronchial opacification at the peripheral basilar right lower lobe likely mucoi d impaction. Strandy scarring at the left base. Moderate emphysematous change. Biapical pleural-parenchymal scarring. Slight upper abdomen shows cholecystectomy clips and mild low-density thickening of the left adrenal gland without discrete nodularity. Bones: Accentuated midthoracic kyphosis. No osseous destructive process seen. IMPRESSION: 1. COPD with moderate emphysema. 2. Right basilar nodularity overall decreasing in size. For example, previously measuring up to 9 mm versus 7 mm currently. Suspect an inflammatory etiology including the possibility of endobronchial mu coid impaction. Recommend surveillance follow-up in 6 months to reassess.
== END | disposition home or self-care (01) ==
LOC: RADCTMAIN 15:37
PROVIDERS: ATTEND Internal Medicine Hematology & Oncology
DX: D37.030 Neoplasm of uncertain behavior of the parotid salivary glands (principal); J43.9 Emphysema, unspecified; J98.4 Other disorders of lung; I10 Essential (primary) hypertension; I67.89 Other cerebrovascular disease; R91.8 Other nonspecific abnormal finding of lung field
CPT/HCPCS: 71250; 82565; 84520

== ENCOUNTER → 2023-09-23 | Outpatient (CLI) | payer MEDICARE ==
[2023-09-23 12:31] LABS: African American GFR (CKD) 42 (>60 ml/min/1.73 sqM); Blood Urea Nitrogen 25 mg/dL (7-17); Non-African American GFR(CKD) 36 (>60 ml/min/1.73 sqM)
--- NOTE | 2023-09-23 16:42 | CT ---
EXAMINATION TYPE: CT chest wo con CT DLP: 124.4 mGycm, Automated exposure control for dose reduction was used. DATE OF EXAM: 09/23/2023 12:52 PM COMPARISON: Chest CT 04/09/2023. CLINICAL INDICATION:Female, 87 years old with history of J98.4 pulmonary nodule; PHH, pulmonary nodul e TECHNIQUE: Multiple axial images were obtained through the chest. Sagittal and coronal reformats were created for review. Contrast used: mL of (None if empty) Oral contrast used: (None if empty) FINDINGS: LUNGS/ PLEURA: Fibrous strand like scar in the left lung base. No independent pulmonary parenchymal n odules noted in previous small infiltrate in the inferior lingula has resolved. The right lung base o n image 50 of 76 previous 8mm nodule currently measures 4 mm. A 6 mm nodule along the right lizy-diap hragm has increased scarlike appearance and is also smaller compared to prior exam. No pulmonary par enchymal masses or sizable (greater than 8 mm) nodules. Increased AP diameter slight flattening of d iaphragms suggest emphysema. AIRWAY: Patent and unremarkable. HEART: Size within normal limits. MEDIASTINUM: No gross evidence of adenopathy by size criteria. Precarinal 11 mm lymph node is stable in size. VASCULATURE: No aortic aneurysm. MUSCULOSKELETAL: No acute osseous abnormalities SOFT TISSUES/LYMPH NODES: Unremarkable. LOWER NECK: No significant findings. UPPER ABDOMEN: No significant findings. IMPRESSION: 1. COPD with stigmata of emphysema 2. Previous nodules are smaller and there are no longer any sizable (greater than 8 millimeter) nodul es
== END | disposition home or self-care (01) ==
LOC: RADCTMAIN 11:21
PROVIDERS: ATTEND Internal Medicine Hematology & Oncology
DX: D37.030 Neoplasm of uncertain behavior of the parotid salivary glands (principal); J44.9 Chronic obstructive pulmonary disease, unspecified; I10 Essential (primary) hypertension; R91.8 Other nonspecific abnormal finding of lung field; I63.9 Cerebral infarction, unspecified
CPT/HCPCS: 36415; 71250; 82565; 84520